=== PATIENT | female | born 2000 | race Two or more races ===

== ENCOUNTER 2022-05-22 11:13 | Emergency (ER) | payer MEDICARE, BC ==
[2022-05-22] MEDS ORDERED: Ketorolac 15 MG/ML SDV IVPUSH ONE (13:10)
[2022-05-22] MEDS ORDERED: Metoclopramide 10 MG/2 ML SDV IVPUSH ONE (13:11)
[2022-05-22] MEDS ORDERED: diphenhydrAMINE 50 MG/ML SDV IVPUSH ONE (13:11)
== END 2022-05-22 15:15 | disposition home or self-care (01) ==
LOC: JD.ED 11:13
DX: R51.9 Headache, unspecified (principal); R20.0 Anesthesia of skin
CPT/HCPCS: 70450; 96374; 96375; 99284; J1200; J1885; J2765

== ENCOUNTER 2025-03-09 20:52 | Emergency (ER) | payer MEDICARE, OTHER ==
[2025-03-09] MEDS ORDERED: Sodium Chloride 0.9% 10 ML Syringe FLUSH PRN (21:52)
[2025-03-09] MEDS: Sodium Chloride 0.9% 1,000 ML IV ONE (22:16)
[2025-03-09 22:17] LABS: BASOPHILS PERCENT AUTO 0.5 % (0.0-1.0); EOSINOPHILS ABSOLUTE AUTO 0.1 K/mm3 (0.0-0.4); EOSINOPHILS PERCENT AUTO 1.6 % (0.0-6.0); HEMATOCRIT 41.2 % (37.0-47.0); HEMOGLOBIN 13.9 gm/dl (12.0-16.0); IMMATURE GRAN ABSOLUTE AUTO 0.03 K/mm3 (0.00-0.05); IMMATURE GRAN PERCENT AUTO 0.4 % (0.0-0.4); LYMPHOCYTES ABSOLUTE AUTO 1.4 K/mm3 (1.0-4.8); LYMPHOCYTES PERCENT AUTO 18.1 % (24.0-44.0); MEAN CORPUSCULAR HEMOGLOBIN 32.7 pg (28.0-32.0); MEAN CORPUSCULAR HGB CONC 33.7 g/dl (32.0-36.0); MEAN CORPUSCULAR VOLUME 96.9 fl (83.0-99.0); MEAN PLATELET VOLUME 8.3 fl (9.4-12.3); MONOCYTES ABSOLUTE AUTO 0.8 K/mm3 (0.0-0.8); MONOCYTES PERCENT AUTO 10.8 % (0.0-8.0); NEUTROPHILS ABSOLUTE AUTO 5.3 K/mm3 (1.8-7.7); NEUTROPHILS PERCENT AUTO 68.6 % (41.0-71.0); PLATELET COUNT,PLT 233 K/mm3 (150-400); RED BLOOD CELL COUNT 4.25 M/mm3 (4.10-5.30)
[2025-03-09 22:43] LABS: A/G RATIO 1.1 (1-2); ALANINE AMINOTRANSFERASE,ALT 23 U/L (14-59); ALBUMIN 3.4 g/dl (3.4-5.0); ALKALINE PHOSPHATASE 61 U/L (46-116); ANION GAP 11.5 (5-15); ASPARTATE AMNIOTRANSFERASE,AST 13 U/L (15-37); BILIRUBIN TOTAL 0.2 mg/dL (0.2-1.0); BLOOD UREA NITROGEN,BUN 17 mg/dL (7-18); BUN/CREATININE RATIO 24.3 (14-18); CALCIUM 9.4 mg/dL (8.5-10.1); CARBON DIOXIDE,CO2 27 mEq/L (21-32); CHLORIDE,CL 105 mEq/L (98-107); CREATININE 0.7 mg/dL (0.55-1.02); ESTIMATED GFR 122 mL/min (>60); GLUCOSE RANDOM 100 mg/dL (70-99); POTASSIUM,K 4.5 mEq/L (3.5-5.1); PROTEIN TOTAL,TP 6.4 g/dl (6.4-8.2); SODIUM,NA 139 mEq/L (136-145)
[2025-03-09 22:49] LABS: TROPONIN I HIGH SENSITIVITY < 4 pg/mL (<=51)
[2025-03-10 00:50] LABS: APPEARANCE,URINE SLT CLOUDY (Clear); BILIRUBIN,URINE NEGATIVE (Negative); COLOR,URINE YELLOW (Yellow); GLUCOSE,URINE NEGATIVE (Negative); KETONES,URINE 1+ (Negative); LEUKOCYTE ESTERASE,URINE TRACE (Negative); NITRITE,URINE NEGATIVE (Negative); OCCULT BLOOD,URINE NEGATIVE (Negative); PH,URINE 6.5 (5.0-8.0); PROTEIN,URINE NEGATIVE (Negative); UROBILINOGEN,URINE 0.2 (0.2-1.0)
[2025-03-10] MEDS: Sodium Chloride 0.9% 1,000 ML IV ONE (00:51)
[2025-03-10 01:08] LABS: BACTERIA,URINE MODERATE /hpf (FEW); MUCUS,URINE FEW /hpf (FEW); RBC,URINE 0-5 /hpf (0-5)
[2025-03-10] MEDS: Cephalexin 500 MG Cap PO ONE (02:48)
== END 2025-03-10 02:55 | disposition home or self-care (01) ==
LOC: JD.ED 20:52
DX: R55 Syncope and collapse (principal); R82.90 Unspecified abnormal findings in urine; Z79.899 Other long term (current) drug therapy
CPT/HCPCS: 36415; 71045; 71045-26; 80053; 81001; 83735; 84484; 84703; 85025; 87086; 93005; 96360; 96361; 99284-25; A9270-GY; J7030